=== PATIENT | female | born 1995 | race Caucasian/White ===

== ENCOUNTER 2016-12-06 09:53 | Emergency (ER) | payer MEDICAID ==
[2016-12-06 09:58] VITALS: BP 131/69
[2016-12-06] MEDS ORDERED: IBUPROFEN 800 MG TABLET PO ONE (10:17)
[2016-12-06] MEDS ORDERED: LIDOCAINE 2% VISCOUS SOLN 20 ML UDCUP PO ONE (10:19)
--- NOTE | 2016-12-06 10:20 | ER Document Report ---
HPI - HPI Patient complains to provider of: sore throat Onset: Other - 2 weeks Onset/Duration: Persistent Quality of pain: Achy Pain Level: 4 Context: Patient presents complaining of sore throat for the past 2 weeks that worsened over the past 2 days. Patient denies any fever. Patient has been around sick contacts recently with similar symptoms. Associated Symptoms: Earache, Rhinnorhea, Sore throat. denies: Fever, Shortness of breath Exacerbated by: Denies Relieved by: Denies Similar symptoms previously: Yes Recently seen / treated by doctor: No - ROS ROS below otherwise negative: Yes Systems Reviewed and Negative: Yes All other systems reviewed and negative - CONSTITUTIONAL Constitutional: DENIES: Fever - EENT EENT: REPORTS: Sore Throat, Ear Pain, Congestion - NEURO Neurology: DENIES: Headache, Weakness - RESPIRATORY Respiratory: DENIES: Trouble Breathing, Coughing - GASTROINTESTINAL Gastrointestinal: DENIES: Nausea, Patient vomiting, Diarrhea - REPRODUCTIVE Reproductive: DENIES: : - MUSCULOSKELETAL Musculoskeletal: DENIES: Back Pain, Neck Pain - DERM Skin Color: Normal Skin Problems: None Past Medical History - General Information source: Patient - Social History Smoking Status: Never Smoker Frequency of alcohol use: None Drug Abuse: None Occupation: [employer] Lives with: Family Family History: Reviewed & Not Pertinent Patient has suicidal ideation: No Patient has homicidal ideation: No Renal/ Medical History: Reports: Hx Ovarian Cysts. Denies: Hx Peritoneal Dialysis Surgical Hx: Negative - Immunizations Immunizations up to date: Yes Hx Diphtheria, Pertussis, Tetanus Vaccination: - unknown Vertical Provider Document - CONSTITUTIONAL Agree With Documented VS: Yes Exam Limitations: No Limitations General Appearance: WD/WN, No Apparent Distress - INFECTION CONTROL TRAVEL OUTSIDE OF THE [place] IN LAST 30 DAYS: No - HEENT HEENT: Atraumatic, Normocephalic, Pharyngeal Tenderness, Pharyngeal Erythema. negative: Pharyngeal Exudate, Tympanic Membrane Red, Tympanic Membrane Bulging Notes: 2+ tonsillar hypertrophy - NECK Neck: Normal Inspection, Supple. negative: Lymphadenopathy-Left, Lymphadenopathy-Right - RESPIRATORY Respiratory: Breath Sounds Normal, No Respiratory Distress O2 Sat by Pulse Oximetry: 96 - CARDIOVASCULAR Cardiovascular: Regular Rate, Regular Rhythm, No Murmur - BACK Back: Normal Inspection - MUSCULOSKELETAL/EXTREMETIES Musculoskeletal/Extremeties: [place] - NEURO Level of Consciousness: Awake, Alert, Appropriate Motor/Sensory: No Motor Deficit - DERM Integumentary: Warm, Dry, No Rash Course - Re-evaluation Re-evalutation: 12/06/16 11:10 Patient reports throat pain is improved after oral lidocaine. Discussed worsening signs or symptoms that patient should return neatly for. Patient verbalized understanding and agrees with plan of care. Pt managing oral secretions. - Vital Signs Vital signs: Temp Pulse Resp BP Pulse Ox 98.5 F 100 H 16 131/69 H 96 12/06/16 09:57 12/06/16 09:57 12/06/16 09:57 12/06/16 09:57 12/06/16 09:57 - Laboratory Laboratory results interpreted by me: 12/06/16 11:09 Labs- Entire Visit 12/06/16 10:00 Group A Strep Rapid NEGATIVE Discharge - Discharge Clinical Impression: Sore throat Pharyngitis Qualifiers: Pharyngitis/tonsillitis etiology: unspecified etiology Qualified Code(s): J02.9 - Acute pharyngitis, unspecified Condition: Stable Disposition: HOME, SELF-CARE Instructions: Sore Throat ([facility]) Additional Instructions: Return immediately for any new or worsening symptoms Followup with your primary care provider, call tomorrow to make a followup appointment Throat culture is pending, we will call if you need any different treatment Prescriptions: Naproxen [Naprosyn 250 Nmg Tablet] 1 tab PO BID #14 tablet Forms: Return to Work Referrals: TANISHA JOSUE DO [NO LOCAL MD] - Follow up as needed
[2016-12-06] MEDS ORDERED: DEXAMETHASONE 4 MG TABLET PO ONE (11:10)
== END 2016-12-06 11:37 | disposition home or self-care (01) ==
LOC: ER 09:53
DX: J02.9 Acute pharyngitis, unspecified (principal); J35.1 Hypertrophy of tonsils; H92.09 Otalgia, unspecified ear; J34.89 Other specified disorders of nose and nasal sinuses
CPT/HCPCS: 99283; 87070; 87880; J3490

== ENCOUNTER 2017-12-23 22:54 | Emergency (ER) | payer SELFPAY ==
--- NOTE | 2017-12-24 01:16 | ER Document Report ---
ED General - General Chief Complaint: Pelvic Pain Stated Complaint: PELVIC PAIN Time Seen by Provider: 12/24/17 01:04 TRAVEL OUTSIDE OF THE [place] IN LAST 30 DAYS: No - HPI Notes: Patient is a 21-year-old female with a history of ovarian cyst who presents to the ED complaining of left lower pelvic pain 1 week, but has been intermittent over the last year. Patient states that the pain does not radiate. She is still eating and drinking without any difficulties. She is urinating normally and having normal bowel movements. Patient has not noticed any vaginal bleeding or discharge. Patient states that she would like tested for STDs as well but does not believe she has one. She denies any drug allergies. She denies any other significant past medical history. Denies any IV drug use. Denies any headache, fever, neck pain, URI, sore throat, chest pain, palpitations, syncope, cough, shortness of breath, wheeze, dyspnea, nausea/ vomiting/diarrhea, urinary retention, dysuria, hematuria, back pain, loss of control of bowel or bladder, numbness/tingling, saddle anesthesia, muscle paralysis/weakness, or rash. - Related Data Allergies/Adverse Reactions: No Known Allergies Allergy (Verified 12/06/16 09:57) Past Medical History - Social History Smoking Status: Never Smoker Family History: Reviewed & Not Pertinent Renal/ Medical History: Reports: Hx Ovarian Cysts. Denies: Hx Peritoneal Dialysis - Immunizations Immunizations up to date: Yes Hx Diphtheria, Pertussis, Tetanus Vaccination: - unknown Review of Systems - Review of Systems -: Yes All other systems reviewed and negative Physical Exam - Vital signs Vitals: Temp Pulse Resp BP Pulse Ox 98.7 F 75 17 123/72 97 12/23/17 23:34 12/23/17 23:34 12/23/17 23:34 12/23/17 23:34 12/23/17 23:34 - Notes Notes: PHYSICAL EXAMINATION: GENERAL: Well-appearing, well-nourished and in no acute distress. HEAD: Atraumatic, normocephalic. EYES: Pupils equal round and reactive to light, extraocular movements intact, conjunctiva are normal. ENT: Moist mucous membranes. EAC's clear bilaterally. TMs intact bilaterally without erythema fluid or perforation. No tonsillar hypertrophy or erythema. NECK: Normal range of motion, supple without lymphadenopathy LUNGS: Breath sounds clear to auscultation bilaterally and equal. No wheezes rales or rhonchi. HEART: Regular rate and rhythm without murmurs ABDOMEN: Soft, nondistended abdomen. No guarding, no rebound. No masses appreciated. Normal bowel sounds present. CVA tenderness negative bilaterally. + tenderness Lt lower pelvic Female : No inguinal adenopathy. External genitalia without erythema, lesions , or masses. Vaginal mucosa pink with scant white discharge. Cervix parous, pink, and without discharge. Uterus is smooth. No adnexal tenderness. Mild CMT Back/Musculoskeletal: FROM to passive/active. Strength 5+/5. Extremities: No cyanosis/clubbing/edema b/l. Peripheral pulses 2+. Capillary refill less than 3 seconds. NEUROLOGICAL: Normal speech, normal gait. PSYCH: Normal mood, normal affect. SKIN: Warm, Dry, normal turgor, no rashes or lesions noted. Course - Re-evaluation Re-evalutation: 12/24/17 06:03 Patient is an afebrile, well-hydrated, 21-year-old female who presents to the ED with chlamydia and gonorrhea, possible mild PID. Vitals are acceptable without any significant tachycardia, tachypnea, or hypoxia. PE is otherwise unremarkable. Patient is nontoxic-appearing and is tolerating p.o. without difficulties. Patient has had constant pain for the last week in the left lower quadrant/pelvic area, but has had this pain intermittently over the last year as well. CBC, CMP, hCG, urinalysis were unremarkable for any acute pathology. Wet mount was unremarkable. See Chlamydia gonorrhea test. Transvaginal ultrasound was grossly unremarkable, but could not visualize the left ovary due to bowel gas. A repeat ultrasound was requested, but tech states that they are still unable to visualize the ovary. I did review this with Dr. Ross who is in agreement that patient's presentation is not consistent with an ovarian torsion as her symptoms have been ongoing for a week straight, and patient does have found infection. Rocephin and Zithromax given today. I will be sending her home with doxycycline to cover for PID as well. No other labs or imaging warranted at this time based on H&P. Low suspicion/ risk for acute appendicitis, bowel obstruction, acute cholecystitis, acute cholangitis, perforated diverticulitis, incarcerated hernia, pancreatitis, perforated ulcer, peritonitis, sepsis, ectopic , or other systemic emergent condition at this time. Patient is aware that her condition can change from initial presentation and she needs to monitor symptoms closely and seek medical attention if any acute changes. Conservative measures otherwise for symptoms. Recheck with OBGYN in 3-5 days. Recheck with your PCM in 3-5 days. Follow-up with the health department this week for further testing. Return to the ED with any worsening/concerning symptoms otherwise as reviewed in discharge. Patient is in agreement. - Vital Signs Vital signs: Temp Pulse Resp BP Pulse Ox 98.7 F 75 18 124/82 95 12/23/17 23:34 12/23/17 23:34 12/24/17 04:30 12/24/17 04:30 12/24/17 04:30 - Laboratory Result Diagrams: 12/24/17 01:38 12/24/17 01:38 Laboratory results interpreted by me: 12/24/17 12/24/17 12/24/17 01:38 01:38 02:18 Glucose 126 H Urine Urobilinogen 2.0 H Ur Leukocyte Esterase MODERATE H Chlamydia DNA (PCR) DETECTED H N.gonorrhoeae DNA (PCR) DETECTED H Procedures - Pelvic Exam Pelvic exam Time completed: 02:40 Cultures obtained: Yes Wet prep obtained: Yes Bimanual exam performed: Yes - mild tenderness Witnessed by: female nurseolivia Discharge - Discharge Clinical Impression: Chlamydia, Gonorrhea, Pelvic pain Condition: Stable Disposition: HOME, SELF-CARE Instructions: Doxycycline ([facility]), Chlamydia ([facility]), Pelvic Pain ([facility]), Gonorrhea ([facility]) Additional Instructions: Push fluids (i.e. water, cranberry juice) Proper hygenic technique Keep the skin clean Safe sexual practices with condoms everytime Tylenol/ibuprofen as needed Check in with the health department this week for further testing*and he must notify partners to get treated Return immediately if symptoms worsen F/u with your PCM/UPPER TIER in 3-5 days for a recheck Consider consult with a Urologist for ongoing/worsening symptoms. Return to the ED with any development of MCCARTHY/fever, trouble with vision, eye redness, worsening pain, urethral discharge, urinary retention, blood in the urine, flank pain, abdominal pain, n/v, Chest Pain, shortness of breath, joint pains, trouble breathing, or any other worsening/concerning symptoms as needed otherwise. Prescriptions: Doxycycline Hyclate 100 mg PO BID #28 capsule [facility] - Follow up in 3-5 days [facility] - Follow up as needed
[2017-12-24 01:54] LABS: ABSOLUTE EOSINOPHILS # (AUTO) 0.1 10^3/uL (0.0-0.6); ABSOLUTE LYMPHOCYTES (AUTO) 2.4 10^3/uL (0.5-4.7); ABSOLUTE MONOCYTES (AUTO) 0.4 10^3/uL (0.1-1.4); BASOPHILS % (AUTO) 0.6 % (0-2); EOSINOPHILS % (AUTO) 1.8 % (0-6); HEMOGLOBIN 13.2 g/dL (12.0-15.5); LYMPHOCYTES % (AUTO) 34.8 % (13-45); MEAN CORPUSCULAR HEMOGLOBIN 29.3 pg (27.0-33.4); MEAN CORPUSCULAR HGB CONC 34.7 g/dL (32.0-36.0); MEAN CORPUSCULAR VOLUME 85 fl (80-97); MONOCYTES % (AUTO) 5.1 % (3-13); PLATELET COUNT 260 10^3/uL (150-450); RED BLOOD COUNT 4.49 10^6/uL (3.72-5.28); RED CELL DISTRIBUTION WIDTH 12.7 % (11.5-14.0); SEGMENTED NEUTROPHILS % (AUTO) 57.7 % (42-78); TOTAL CELLS COUNTED % (AUTO) 100 %
[2017-12-24 02:03] LABS: APPEARANCE,URINE SLIGHTLY-CLOUDY; BILIRUBIN,URINE NEGATIVE (NEGATIVE); COLOR,URINE YELLOW; GLUCOSE, URINE NEGATIVE (NEGATIVE); KETONES,URINE NEGATIVE (NEGATIVE); LEUKOCYTE ESTERASE,URINE MODERATE (NEGATIVE); NITRITE,URINE NEGATIVE (NEGATIVE); PROTEIN,URINE NEGATIVE (NEGATIVE); URINE SPECIFIC GRAVITY 1.019
[2017-12-24 02:16] LABS: ALANINE AMINOTRANSFERASE 18 U/L (9-52); ALBUMIN 4.4 g/dL (3.5-5.0); ALKALINE PHOSPHATASE 105 U/L (38-126); ANION GAP 13 (5-19); ASPARTATE AMINO TRANSFERASE 16 U/L (14-36); BILIRUBIN,DIRECT 0.3 mg/dL (0.0-0.4); BILIRUBIN,TOTAL 0.5 mg/dL (0.2-1.3); BLOOD UREA NITROGEN 11 mg/dL (7-20); CALCIUM 9.5 mg/dL (8.4-10.2); CARBON DIOXIDE 28 mmol/L (22-30); CHLORIDE 104 mmol/L (98-107); GLUCOSE 126 mg/dL (75-110); POTASSIUM 3.7 mmol/L (3.6-5.0); TOTAL PROTEIN 8.1 g/dL (6.3-8.2)
[2017-12-24 02:57] LABS: T.VAGINALIS (WET MOUNT) NO TRICHOMONAS SEEN; WBCS (WET MOUNT) RARE WBCS SEEN; YEAST (WET MOUNT) NO YEAST SEEN
--- NOTE | 2017-12-24 03:14 | RADIOLOGY REPORT (SQ) ---
EXAM DESCRIPTION: US PELVIS COMPLETED DATE/TME: 12/24/2017 01:11 CLINICAL HISTORY: 21 years, Female, Lt lower pelvic pain COMPARISON: 01/03/2015 TECHNIQUE: Complete first trimester obstetrical ultrasound. FINDINGS: The uterus measures 5.9 x 4.3 x 3.3 cm. Endometrial thickness of 7 0.5 cm. Cervical length of 2.2 cm with nabothian cysts. No myometrial abnormalities. No free pelvic fluid. The left ovary is identified. No large adnexal masses. The right ovary measures 3.0 x 2.2 x 2.4 cm. Limited color and spectral Doppler imaging demonstrates flow within the right ovary. IMPRESSION: 1. No sonographic abnormality identified in the pelvis. 2. The left ovary is not identified. 2011 [employer]- All Rights Reserved
[2017-12-24 04:23] LABS: CHLAM PCR DETECTED (NOT DETECT)
[2017-12-24 04:36] LABS: GON PCR DETECTED (NOT DETECT)
[2017-12-24 05:57] VITALS: BP 124/82
[2017-12-24] MEDS ORDERED: AZITHROMYCIN 250 MG TABLET PO ONE (06:00)
[2017-12-24] MEDS ORDERED: CEFTRIAXONE INJ 250 MG VIAL IM ONE (06:00)
[2017-12-24] MEDS ORDERED: LIDOCAINE 1% INJ-PF (10 MG/ML) 30 ML SDV INJ ONE (06:00)
== END 2017-12-24 07:00 | disposition home or self-care (01) ==
LOC: ER 22:54
DX: A74.9 Chlamydial infection, unspecified (principal); A54.9 Gonococcal infection, unspecified; R10.2 Pelvic and perineal pain; R10.32 Left lower quadrant pain
CPT/HCPCS: 99284; 96372; 36415; 87086; 87210; 85025; 81025; 80053; 81001; 87491; 87591; 76830; 93976; J3490; J0696